=== PATIENT | male | born 1980 | race Two or more races ===

== ENCOUNTER → 2018-04-13 | Day surgery (SDC) | payer OTHER ==
--- NOTE | 2018-04-13 11:46 | RADIOLOGY REPORT (SQ) ---
EXAM DESCRIPTION: ARTHRO SHOULDER INJECTION; FLUORO/NEEDLE PLACEMENT COMPLETED DATE/TIME: 04/13/2018 11:03 am REASON FOR STUDY: R SHOULDER PAIN COMPARISON: None. FLUOROSCOPY TIME: 24 seconds Is 1 images saved to PACS. LIMITATIONS: None. PROCEDURE: Procedure, risks, benefits and alternatives explained to patient who then gave written co nsent. The right shoulder was marked and a time out was called for correct procedure verification. P osterior entry site marked using fluoroscopic guidance. Shoulder prepped and draped using sterile te chnique. Local anesthesia achieved using 1% lidocaine injection. Hypodermic needle introduced into the joint space under direct fluoroscopic visualization. Non-ionic contrast instilled to confirm intr a-articular position. Dilute gadolinium solution then injected. Needle removed and entry site covere d with sterile bandage. No immediate complications noted. TECHNIQUE: Digital images acquired during fluoroscopy and stored on PACS. Patient immediately take n to the MR suite for additional imaging. INJECTION LOCATION: Posterior right shoulder. CONTRAST TYPE AND AMOUNT: 1 cc Isovue 10 cc Prohance/Saline mixture. IMPRESSION: SUCCESSFUL NEEDLE PLACEMENT AND INJECTION FOR RIGHT SHOULDER MR ARTHROGRAM USING POSTERI OR APPROACH. COMMENT: Quality ID [id number]: Final reports for procedures using fluoroscopy that document radiation exp osure indices, or exposure time and number of fluorographic images (if radiation exposure indices are not available) TECHNICAL DOCUMENTATION: JOB ID: [id number] [employer] All Rights Reserved Reading location - IP/workstation name: [email or web address]
--- NOTE | 2018-04-13 11:46 | RADIOLOGY REPORT (SQ) ---
EXAM DESCRIPTION: ARTHRO SHOULDER INJECTION; FLUORO/NEEDLE PLACEMENT COMPLETED DATE/TIME: 04/13/2018 11:03 am REASON FOR STUDY: R SHOULDER PAIN COMPARISON: None. FLUOROSCOPY TIME: 24 seconds Is 1 images saved to PACS. LIMITATIONS: None. PROCEDURE: Procedure, risks, benefits and alternatives explained to patient who then gave written co nsent. The right shoulder was marked and a time out was called for correct procedure verification. P osterior entry site marked using fluoroscopic guidance. Shoulder prepped and draped using sterile te chnique. Local anesthesia achieved using 1% lidocaine injection. Hypodermic needle introduced into the joint space under direct fluoroscopic visualization. Non-ionic contrast instilled to confirm intr a-articular position. Dilute gadolinium solution then injected. Needle removed and entry site covere d with sterile bandage. No immediate complications noted. TECHNIQUE: Digital images acquired during fluoroscopy and stored on PACS. Patient immediately take n to the MR suite for additional imaging. INJECTION LOCATION: Posterior right shoulder. CONTRAST TYPE AND AMOUNT: 1 cc Isovue 10 cc Prohance/Saline mixture. IMPRESSION: SUCCESSFUL NEEDLE PLACEMENT AND INJECTION FOR RIGHT SHOULDER MR ARTHROGRAM USING POSTERI OR APPROACH. COMMENT: Quality ID 145: Final reports for procedures using fluoroscopy that document radiation exp osure indices, or exposure time and number of fluorographic images (if radiation exposure indices are not available) TECHNICAL DOCUMENTATION: JOB ID: [id number] [employer]- All Rights Reserved Reading location - IP/workstation name: [email or web address]
--- NOTE | 2018-04-13 13:14 | RADIOLOGY REPORT (SQ) ---
EXAM DESCRIPTION: MRI RT UPPER JOINT WITH COMPLETED DATE/TIME: 04/13/2018 11:31 am REASON FOR STUDY: R SHOULDER PAIN COMPARISON: None. TECHNIQUE: Right shoulder images acquired and stored on PACS. Oblique coronal, oblique sagittal, and axial imaging to include fat sensitive sequences as T1, water sensitive sequences as FST2/STIR, and contrast sensitive sequences as FST1. LIMITATIONS: Mild motion artifact on some of the images. FINDINGS: JOINT DISTENTION: Adequate. 7 mm loose body along the anterior joint BONE MARROW AND CORTEX: No suspicious bone lesion. No marrow replacement. No fracture. AC JOINT: Anteriorly downsloping acromion without significant spurs. AC joint looks relatively intac t. GLENOHUMERAL JOINT: No subluxation or dislocation. No focal chondral lesions. ROTATOR CUFF: No evidence of high-grade partial or full thickness cuff tear. Slight flattening and i rregularity of the posterolateral humeral head underlying cuff insertion. No cuff muscle atrophy sheldon dent. LABRUM AND BICEPS LABRAL COMPLEX: No evidence of superior labral tear or biceps disease. INFERIOR LABRAL COMPLEX: Blunting of the anterior inferior labrum. ADJACENT SOFT TISSUES: No mass or axillary adenopathy. OTHER: No other significant finding. IMPRESSION: 1. Suspect at least one loose body in the anterior joint. Chondral surfaces look relat ively intact. 2. No superior labral tear or biceps lesion identified. Blunting and irregularity of the anterior inferior labrum. Slightly flattened appearance of the posterolateral humeral head. Fi ndings consistent with history of previous dislocation. 3. No significant cuff tear. TECHNICAL DOCUMENTATION: JOB ID: [id number] [employer]- All Rights Reserved Reading location - IP/workstation name: [email or web address]
== END ==
LOC: RAD 09:50 → EDSTATUS 10:00
PROVIDERS: ATTEND Family Medicine
DX: M25.511 Pain in right shoulder (principal)
CPT/HCPCS: 73222; 77002; 23350; A9576